=== PATIENT | male | born 1950 | race Caucasian/White ===

== ENCOUNTER 2019-06-24 19:05 | Emergency (ER) | payer MEDICARE, MEDICAID ==
[~2019-06-24] VITALS: Ht 180.3 cm; Wt 80.9 kg
[2019-06-24] MEDS ORDERED: LIDOCAINE-MPF 2% ,5ML ONE (19:47)
[2019-06-24] MEDS ORDERED: LIDOCAINE 2%, 20ML SQ ONE (20:00)
--- NOTE | 2019-06-24 22:30 | NUR ---
PT RESTING WITH EYES CLOSED. MONITOR IN PLACE. NO NEEDS AT THIS TIME.
--- NOTE | 2019-06-24 23:30 | NUR ---
PT RESTING WITH EYES CLOSED. MONITOR IN PLACE. NO NEEDS AT THIS TIME.
[2019-06-25] MEDS ORDERED: DIPH,PERTUSS(ACELL),TET VAC/PF 0.5 ML IM-VACC ONE ×2 (00:30→00:56)
[2019-06-25 01:01] VITALS: BP 99/58
--- NOTE | 2019-06-25 01:08 | NUR ---
PT AWAKE AND ALERT. MEDICATED PER MAR. PT UNSTEADY. WILL HOLD AND REASSESS IN 45 MIN.
--- NOTE | 2019-06-25 01:40 | NUR ---
PT AMBULATED HALLWAYS WITH STEADY GAIT. PT VERBALIZED UNDERSTANDING.
== END 2019-06-25 01:42 | disposition home or self-care (01) ==
LOC: ED 06-25 00:55
DX: S01.01XA Laceration without foreign body of scalp, initial encounter (principal); R55 Syncope and collapse; F10.120 Alcohol abuse with intoxication, uncomplicated; Z72.9 Problem related to lifestyle, unspecified; F17.200 Nicotine dependence, unspecified, uncomplicated; W01.0XXA Fall on same level from slipping, tripping and stumbling without subsequent striking against object, initial encounter; Y93.89 Activity, other specified; Y92.89 Other specified places as the place of occurrence of the external cause; Y99.8 Other external cause status
CPT/HCPCS: 12032; 36415; 70450; 71045; 72125; 80053; 83690; 83880; 85025; 90471; 90715; 99285; J7030

== ENCOUNTER 2019-06-25 13:18 | Emergency (ER) | payer SELFPAY ==
[~2019-06-25] VITALS: Ht 170.2 cm; Wt 78.0 kg
--- NOTE | 2019-06-25 14:04 | NUR ---
TO ROOM 24 FROM WAITING AREA ALERT AND ORIENTED ADMITS TO DRINKING 1/5 OF ETOH TODAY, DENIES ANY ILLICITS OR PRESCRIPTION MEDICATIONS EMS NOTED SBP IN THE 80'S, HR IN THE 90'S THEY STARTED A PIV AND ADMINISTERED 1L NS
[2019-06-25] MEDS ORDERED: PLEASE ENTER HEIGHT AND WEIGHT MC SCH (14:30)
[2019-06-25] MEDS ORDERED: SODIUM CHLORIDE 0.9% 1,000ML IVBOLUS ONE ×2 (14:30→15:00)
[2019-06-25] MEDS ORDERED: SODIUM CHLORIDE FLUSH 10ML SYR IVF ONE (14:30)
[2019-06-25] MEDS ORDERED: THIAMINE 100 MG in SODIUM CHLORIDE 0.9% 50 ML IVPB ONE (14:30)
[2019-06-25 15:05] LABS: BASOPHILS # (AUTO) 0.03 x10^3/uL (0-0.1); BASOPHILS % (AUTO) 0 % (0-1); EOSINOPHILS # (AUTO) 0.03 x10^3/uL (0-0.4); EOSINOPHILS % (AUTO) 0 % (1-7); LYMPHOCYTES # (AUTO) 1.77 x10^3/uL (1-3.4); LYMPHOCYTES % (AUTO) 20 % (22-44); MD NO; MEAN CORPUSCULAR HGB CONC 33.7 g/dL (33.2-36.2); MONOCYTES # (AUTO) 1.08 x10^3/uL (0.2-0.8); MONOCYTES % (AUTO) 13 % (2-9); NEUTROPHILS # (AUTO) 5.76 x10^3/uL (1.8-6.8); NEUTROPHILS % (AUTO) 66 % (42-75); PLATELET COUNT 201 x10^3/uL (130-400); RED BLOOD COUNT 4.97 x10^6/uL (4.38-5.82); RED CELL DISTRIBUTION WIDTH 16.4 % (9.4-14.8)
--- NOTE | 2019-06-25 15:05 | NUR ---
REPORT TO PARAMJIT VILLEDA
[2019-06-25 15:14] LABS: ALANINE AMINOTRANSFERASE 96 U/L (12-78); ALBUMIN 2.8 g/dL (3.4-5.0); ANION GAP 13 mmol/L (5-15); CALCIUM 7.8 mg/dL (8.5-10.1); CHLORIDE 111 mmol/L (98-107); CREATININE 0.99 mg/dL (0.7-1.3)
[2019-06-25 15:16] LABS: ALKALINE PHOSPHATASE 110 U/L (45-117)
--- NOTE | 2019-06-25 15:27 | NUR ---
3RD LITER OF NS INFUSED NOW . DRINKING WATER
--- NOTE | 2019-06-25 15:29 | NUR ---
Report received from Eusebio. pt A/O, answering questions, 2 liter of fluid infusing.
--- NOTE | 2019-06-25 17:36 | NUR ---
pt provided diet tray, eating without complications.
[2019-06-25 18:52] VITALS: BP 109/64
--- NOTE | 2019-06-25 19:00 | NUR ---
Patient given discharge instructions and they have confirmed that they understand the instructions. Patient ambulatory with steady gait.
== END 2019-06-25 19:01 | disposition home or self-care (01) ==
LOC: ED 18:38
DX: F10.120 Alcohol abuse with intoxication, uncomplicated (principal); Y90.9 Presence of alcohol in blood, level not specified
CPT/HCPCS: 36415; 71045; 80053; 83690; 83880; 85025; 99285; J7030